=== PATIENT | female | born 2000 | race American Indian/Alaskan Native ===

== ENCOUNTER 2021-08-12 16:14 | Outpatient (CLI) | payer MEDICAID ==
[2021-08-12] MEDS ORDERED: LACTATED RINGERS 500 ML IV ONE (18:03)
[2021-08-12 18:15] VITALS: BP 116/63
--- NOTE | 2021-08-12 20:41 | Ultrasound Report ---
OB ultrasound limited INDICATION: Pelvic pain IMPRESSION: PACO measures 10.7 cm the heart rate is about 141 bpm Signer Name: Landon Fritz MD Signed: 08/12/2021 8:36 PM Workstation Name: [id number]
== END 2021-08-12 19:11 | disposition home or self-care (01) ==
LOC: TRG 16:14 → APU 16:41 → TRG 19:11
PROVIDERS: ATTEND Obstetrics & Gynecology
DX: O34.92 Maternal care for abnormality of pelvic organ, unspecified, second trimester (principal); Z3A.25 25 weeks gestation of pregnancy
CPT/HCPCS: 76815

== ENCOUNTER 2021-11-18 16:41 | Outpatient (CLI) | payer MEDICAID ==
[2021-11-18 17:12] VITALS: BP 104/67
--- NOTE | 2021-11-18 18:10 | Ultrasound Report ---
OB ultrasound Biophysical profile FINDINGS: Biophysical profile measures 8 out of 8 with a heart rate of 130. There is a live int rauterine in cephalic position with PACO measuring 8.1 cm. IMPRESSION: Live intrauterine with an PACO measuring 8.1 cm. Biophysical profile 8 out of 8. Signer Name: Kevin Keller MD Signed: 11/18/2021 6:06 PM [facility]station Name: [email or web address]
--- NOTE | 2021-11-18 18:10 | Ultrasound Report ---
OB ultrasound Biophysical profile FINDINGS: Biophysical profile measures 8 out of 8 with a heart rate of 130. There is a live int rauterine in cephalic position with PACO measuring 8.1 cm. IMPRESSION: Live intrauterine with an PACO measuring 8.1 cm. Biophysical profile 8 out of 8. Signer Name: Kevin Keller MD Signed: 11/18/2021 6:06 PM [facility] Name: [email or web address]
== END 2021-11-18 17:51 | disposition home or self-care (01) ==
LOC: TRG 16:41 → APU 16:43 → TRG 17:51
PROVIDERS: ATTEND Obstetrics & Gynecology
DX: Z34.93 Encounter for supervision of normal pregnancy, unspecified, third trimester (principal); Z3A.40 40 weeks gestation of pregnancy
CPT/HCPCS: 59025; 76815; 76819

== ENCOUNTER 2021-11-22 16:00 | Outpatient (CLI) | payer MEDICAID ==
[2021-11-22 16:32] VITALS: BP 91/57
--- NOTE | 2021-11-22 19:05 | Ultrasound Report ---
ULTRASOUND OBSTETRIC LIMITED ULTRASOUND BIOPHYSICAL PROFILE INDICATION / CLINICAL INFORMATION: well being. TECHNIQUE: Transabdominal. COMPARISON: 11/18/2021 FINDINGS: BREATHING MOVEMENT = 2 GROSS BODY MOVEMENT = 2 TONE = 2 QUALITATIVE AMNIOTIC FLUID VOLUME = 2 TOTAL BIOPHYSICAL SCORE = 8/8 HEART RATE (beats per minute): 145 AMNIOTIC FLUID INDEX (cm) = 7.6 (normal = 7-24 cm) PRESENTATION: Cephalic. ADDITIONAL FINDINGS: None. IMPRESSION: 1. Biophysical Score = 8/8 Signer Name: Raúl Wilburn MD Signed: 11/22/2021 7:00 PM Workstation Name: [id number]
== END 2021-11-22 17:52 | disposition home or self-care (01) ==
LOC: TRG 16:00 → APU 16:03 → TRG 17:52
PROVIDERS: ATTEND Obstetrics & Gynecology
DX: Z34.93 Encounter for supervision of normal pregnancy, unspecified, third trimester (principal); Z3A.40 40 weeks gestation of pregnancy
CPT/HCPCS: 59025; 76815; 76819